=== PATIENT | female | born 1970 | race Caucasian/White ===

== ENCOUNTER 2017-10-10 10:59 | Emergency (ER) | payer SELFPAY ==
[2017-10-10 11:12] VITALS: BMI 28.7
[2017-10-10 11:22] VITALS: RESP 18
--- NOTE | 2017-10-10 12:25 | C.PDOC ---
History Of Present Illness 47-year-old female, presents to the emergency department with complaints of an itchy rash that is affecting her hands and feet mostly at night. Patents itch is so severe she cannot sleep at night and because of that she feels dizzy and weakness that is ongoing for 3 months. 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 She denies recent allergen exposures. Time Seen by Provider: 10/10/17 12:19 Chief Complaint (Nursing): Dizziness/Lightheaded Past Medical History Reviewed: Historical Data, Nursing Documentation, Vital Signs Vital Signs: Last Vital Signs Temp 98.0 F 10/10/17 12:59 Pulse 68 10/10/17 12:59 Resp 18 10/10/17 12:59 BP 116/72 10/10/17 12:59 Pulse Ox 99 10/10/17 13:09 - Medical History PMH: Depression Surgical History: Back Surgery, Cholecystectomy Family History: States: No Known Family Hx - Social History Hx Alcohol Use: No Hx Substance Use: No - Immunization History Hx Tetanus Toxoid Vaccination: No Hx Influenza Vaccination: No Hx Pneumococcal Vaccination: No Review Of Systems Except As Marked, All Systems Reviewed And Found Negative. Constitutional: Negative for: Fever, Chills Cardiovascular: Negative for: Chest Pain, Palpitations Respiratory: Negative for: Shortness of Breath Gastrointestinal: Negative for: Vomiting Musculoskeletal: Negative for: Back Pain Skin: Positive for: Rash Neurological: Positive for: Weakness, Dizziness. Negative for: Numbness, Headache Physical Exam - Physical Exam Appears: Non-toxic, No Acute Distress, Other (Anxious) Skin: Warm, Dry, Rash (Papular, to dorsum B/L hands and feet. sparing palms and soles, sparing webbing) Head: Atraumatic, Normacephalic Eye(s): bilateral: Normal Inspection, PERRL Nose: Normal Oral Mucosa: Moist Lips: Normal Appearing Neck: Normal ROM Chest: Symmetrical Cardiovascular: Rhythm Regular, No Murmur Respiratory: Normal Breath Sounds, No Accessory Muscle Use Extremity: Normal ROM Neurological/Psych: Oriented x3, Normal Speech ED Course And Treatment O2 Sat by Pulse Oximetry: 99 (RA) Pulse Ox Interpretation: Normal Medical Decision Making Medical Decision Making: Impression Dermatitis Allergic vs Infectious Plan: Patient will be be prescribed a course of rid and discharged for outpatient f/u with PMD. Disposition - Disposition Disposition: HOME/ ROUTINE Disposition Time: 12:23 Condition: GOOD Prescriptions: Pip Butox/Pyrethrins/Permeth [Rid Complete 1-2-3 Lice Kit] 1 each TP ONCE #1 kit Instructions: Permethrin (On the skin), Body Lice (ED) Forms: [employer] (Urdu) Print Language: NEPALI - Clinical Impression Clinical Impression: Scabies - Scribe Statement The provider has reviewed the documentation as recorded by the Scribe (Elvia Swift) All medical record entries made by the Scribe were at my direction and personally dictated by me. I have reviewed the chart and agree that the record accurately reflects my personal performance of the history, physical exam, medical decision making, and the department course for this patient. I have also personally directed, reviewed, and agree with the discharge instructions and disposition.
[2017-10-10 12:59] VITALS: BP 116/72; PULSE 68; TEMP 98
[2017-10-10 13:00] VITALS: O2SAT 99
== END 2017-10-10 13:16 | disposition home or self-care (01) ==
LOC: C.ER 10:59
DX: B86 Scabies (principal)